=== PATIENT | male | born 1960 | race Caucasian/White ===

== ENCOUNTER 2023-01-06 00:50 | Observation (INO) | payer OTHER, SELFPAY ==
--- NOTE | ~2023-01-06 | XR_ITS ---
EXAMINATION: XR abdomen/kub 1V INDICATION: Left ureteral stone TECHNIQUE: Supine views of the abdomen were obtained on 2 radiographs. COMPARISON: None FINDINGS: There is a 6 mm stone at the expected position of the left ureteropelvic junction. Stones m easuring 12 mm and 11 mm are present in the left kidney lower pole. No definite additional urolithias is is identified. There is mild atelectasis or scarring of the left lung base. The bowel gas pattern is normal. There is mild osteoarthritis of the hips. IMPRESSION: 1. 6 mm stone left ureteropelvic junction. 2. Left nephrolithiasis. Reviewed, dictated and finalized at location B.
--- NOTE | 2023-01-06 22:07 | ADMGEN ---
This patient, Leighton Brown, was admitted to Medical Room 247-. Patient/family oriented to hospital policies and general routines including ID bracelet, bed and alarms, visiting hours, pain management, procedures, bathroom and other care routines, personal items, smoking policy, room service/diet, and visiting hours. Information on how to activate the Rapid Response Team has been discussed. Patient/Family are encouraged to report perceived risks to care and to ask questions if they do not understand what they are told or what they should do.
[2023-01-06 22:50] VITALS: BP 179/87; PULSE 99; RESP 18; TEMP 36.6; O2SAT 98
[2023-01-06 22:51] VITALS: BMI 46.9
[2023-01-06 23:20] VITALS: PULSE 92; RESP 12; O2SAT 97
[2023-01-07] VITALS (10 sets, daily range): BP systolic 139–189; BP diastolic 78–99; PULSE 78–101; RESP 16–23; TEMP 36.4–37.2; O2SAT 93–100
[2023-01-07] MEDS: HYDROmorphone HCL INJ (*CRX) 1 MG/ML SYR IV PUSH ×3 (00:41→09:19)
[2023-01-07] MEDS: DEXTROSE 5%/LACTATED RINGERS 1,000 ML 100 ML IV CONT ×2 (01:10→12:54)
[2023-01-07 01:32] LABS: Basophils Percent Auto 0.3 % (0.2-1.2); Eosinophils Percent Auto 0.3 % (0-4.4); Hematocrit 42.7 % (42.0-52.0); Hemoglobin 14.8 g/dL (14.0-18.0); Immature Granulocyte Absolute 0.04 K/mm3 (0.00-0.031); Immature Granulocyte Percent A 0.3 % (0-0.5); Lymphocytes Absolute Auto 1.58 K/mm3 (0.9-3.2); Lymphocytes Percent Auto 13.3 % (18.3-44.2); Mean Corpuscular HGB Conc 34.7 g/dl (32-36); Mean Corpuscular Hemoglobin 31.4 pg (26-34); Mean Corpuscular Volume 90.5 fl (80-100); Mean Platelet Volume 9.9 fl (7.4-10.4); Monocytes Absolute Auto 1.1 K/mm3 (0.1-0.6); Monocytes Percent Auto 9.2 % (2.6-8.5); Neutrophils Absolute Auto 9.1 K/mm3 (1.3-6.7); Neutrophils Percent Auto 76.6 % (45.5-73.1); Platelet Count Result 219 k/mm3 (150-375); Red Blood Count 4.72 M/mm3 (4.6-6.20); Red Cell Distribution Width 13.4 % (11.5-14.5); White Blood Count 11.9 K/mm3 (4.5-10.0)
[2023-01-07 01:44] LABS: Anion Gap 9 mmol/L (8-16); Blood Urea Nitrogen 25 mg/dL (9-20); Calcium 9.5 mg/dL (8.4-10.2); Carbon Dioxide 23 mmol/L (22-30); Chloride 101 mmol/L (98-107); Estimated CRCL calculation 84 ml/min; Estimated Glomerular Filt Rate > 60; Glucose 134 mg/dL (65-110); Potassium 3.8 mmol/L (3.4-5.0); Sodium 133 mmol/L (137-145)
--- NOTE | 2023-01-07 04:36 | PM.IMHP ---
H&P: HPI History of Present Illness Date/Time: 01/07/23 04:36 Chief Complaint: Left flank pain Narrative: 62-year-old previously unknown to our service who reports having spontaneously passed a small right ureteral stone several months ago. He presented to the emergency department at [facility] with acute left renal colic and CT imaging demonstrates a partially obstructing 8 mm left UPJ calculus. He denies fevers chills gross hematuria. His urinalysis it was clean without evidence of infection. He was transferred here due to lack of urologic care at that facility. After discussion he is agreeable to proceeding with left ESWL. I feel comfortable with that given the fact he takes only a baby aspirin and has clean urine. He is aware the risk including, but not limited to, adverse cardiopulmonary events, need for additional procedures, hematuria and perinephric hematoma. Review of Systems Review of Systems: All systems reviewed & are unremarkable except as noted in HPI and below PMFSH Family History Family History (Updated 01/06/23 @ 22:37 by Kalyani Suarez RN) Mother Epilepsy Father Lung cancer Social History Social History Smoking status: Former smoker Alcohol intake: current Drinks per week: 1 Substance use: never Lack of Transportation: No Lack of Food: Never True Current Housing: I Have Housing Concerned About Future Housing: No Difficulty Paying Gas/Electric Bills: No Difficulty Paying for Meds: No Currently Unemployed: No Education: Associate Degree Difficulty w/ Childcare or Family Care: No Spiritual care concerns: No Meds Home Medications and Allergies Home Medications Medication Instructions Recorded Confirmed Type acetaminophen 325 mg capsule 1,000 mg PO Q6H PRN Pain, Mild 01/06/23 01/06/23 History (Tylenol) allopurinol 300 mg tablet 300 mg PO BID 01/06/23 01/06/23 History atorvastatin 10 mg tablet 10 mg PO DAILY 01/06/23 01/06/23 History carvedilol 12.5 mg tablet 12.5 mg PO BID 01/06/23 01/06/23 History diclofenac sodium 75 mg 75 mg PO BID 01/06/23 01/06/23 History tablet,delayed release insulin glargine 100 unit/mL (3 35 unit subcut HS 01/06/23 01/06/23 History mL) subcutaneous pen (Lantus Solostar U-100 Insulin) lisinopril 10 mg tablet 10 mg PO DAILY 01/06/23 01/06/23 History metformin 500 mg tablet 500 mg PO BID 01/06/23 01/06/23 History semaglutide 2 mg/dose (8 mg/3 mL) 2 mg subcut WEEKLY 01/06/23 01/06/23 History subcutaneous pen injector (Ozempic) tramadol 50 mg tablet 50 mg PO TID PRN Pain, Moderate 01/06/23 01/06/23 History Allergies Allergy/AdvReac Type Severity Reaction Status Date / Time No Known Allergies Allergy Verified 01/06/23 22:10 Vital Signs Vital Signs - 24 hr 01/06/23 22:34 01/06/23 22:50 01/06/23 23:20 Temperature 98 F Pulse Rate 99 92 Respiratory Rate 18 12 Blood Pressure 179/87 H Pulse Oximetry 98 97 Oxygen Delivery Room Air Room Air 01/07/23 02:30 Temperature Pulse Rate 85 Respiratory Rate Blood Pressure Pulse Oximetry 96 Oxygen Delivery Autopap H&P: Results Labs Labs: Short CBC 01/07/23 Range/Units 01:24 WBC 11.9 H (4.5-10.0) K/mm3 Hgb 14.8 (14.0-18.0) g/dL Hct 42.7 (42.0-52.0) % Plt Count 219 (150-375) k/mm3 [facility] 01/07/23 01:24 Sodium 133 L Potassium 3.8 Chloride 101 Carbon Dioxide 23 BUN 25 H Creatinine 1.10 Glucose 134 H Calcium 9.5 Assessment and Plan Assessment and plan (1) Obstruction of left ureteropelvic junction (UPJ) due to stone: Code(s): N20.1 - Calculus of ureter Status: Acute (2) Type II diabetes mellitus: Code(s): E11.9 - Type 2 diabetes mellitus without complications Status: Acute (3) Hyperchloremia: Code(s): E87.8 - Other disorders of electrolyte and fluid balance, not elsewhere classified Status: Acute Assessment and Plan: Left ESWL
--- NOTE | 2023-01-07 04:39 | WPDHPUPDATE1 ---
History and Physical Update Update Date/Time: 01/07/23 04:39 History and Physical has been reviewed, including an updated exam of the patient. There are NO changes in the patient's condition. Risks, benefits, and alternatives have been discussed and questions answered. Patient agrees to proceed with procedure.
[2023-01-07 04:51] LABS: Appearance Urine Clear (Clear); Bacteria Urine None Seen /hpf; Bilirubin Urine Negative (Negative); Blood Urine Negative (Negative); Color Urine Yellow (Yellow); Glucose Urine UA Negative (Negative); Ketones Urine Trace mg/dL (Negative); Leukocyte Esterase Ur Negative LEU/UL (NEGATIVE); Nitrate Urine Negative (Negative); Non Pathogenic Casts 0-2; Protein Urine 1+ mg/dL (Negative); RBC Urine 0-2 /hpf (0-2); Specific Grav Ur 1.014 (1.001-1.035); Squamous Epithelial Cell Urine None seen /hpf (Few); Urobilinogen Urine 0.2 mg/dL (<2.0); WBC Urine 0-5 /hpf (0-3); pH Urine 6.5 (5.0-9.0)
[2023-01-07 05:23] LABS: Add Urine Microscopic? YES
[2023-01-07 05:36] LABS: INR 1.1; Partial Thromboplastin Time 26.7 SECONDS (22.3-36.8); Prothrombin Time 14.6 Seconds (11.1-14.7)
[2023-01-07] MEDS: ONDANSETRON INJ 4 MG/2 ML VIAL IV PUSH ×2 (05:42→13:17)
[2023-01-07 08:24] LABS: Glucose Point of Care 141 mg/dl (65-105)
[2023-01-07] MEDS: carvediloL 12.5 MG TABLET PO (09:19)
[2023-01-07 11:50] LABS: Glucose Point of Care 141 mg/dl (65-105)
--- NOTE | 2023-01-07 13:09 | PM.IMPN ---
Progress Note: A&P Assessment and Plan (1) Obstruction of left ureteropelvic junction (UPJ) due to stone: Code(s): N20.1 - Calculus of ureter Status: Acute Assessment and Plan: 6 mm left ureteropelvic junction stone. Patient recently had kidney stone couple months ago that passed on its own. urology consulted. Stent placement with lithotripsy today. Continue IV fluids. (2) Type II diabetes mellitus: Code(s): E11.9 - Type 2 diabetes mellitus without complications Status: Acute Assessment and Plan: Insulin Lispro sliding scale, Accu-checks qAc and HS and Hold oral hypoglycemics Initiate hypoglycemic precautions (3) Hypertension: Code(s): I10 - Essential (primary) hypertension Status: Acute Assessment and Plan: Continue home blood pressure medication. Subjective Date/time seen: 01/07/23 13:09 Interval history: Patient being seen by Urology for left-sided ureteral stone. Patient getting lithotripsy and stent placement today. Patient having left-sided abdominal pain and flank pain. He denies any dysuria, nausea vomiting. Exam Narrative: GENERAL: Comfortable, no acute distress HENMT: moist mucous membranes EYES: EOM intact b/l NECK: no lymphadenopathy RESPIRATORY: clear to auscultation CARDIO: RRR GI: soft, Right-sided abdominal tenderness, bowel sounds present, right-sided CVA tenderness SKIN: no rashes EXTREMITIES: no edema, redness or tenderness Objective Data Vital Signs Vital Signs: Vital Signs - 24 hr 01/06/23 22:34 01/06/23 22:50 01/06/23 23:20 Temperature 98 F Pulse Rate 99 92 Respiratory Rate 18 12 Blood Pressure 179/87 H Pulse Oximetry 98 97 Oxygen Delivery Room Air Room Air 01/07/23 02:30 01/07/23 06:52 01/07/23 09:18 Temperature 97.7 F Pulse Rate 85 96 78 Respiratory Rate 18 Blood Pressure 170/85 H 185/80 H Pulse Oximetry 96 99 Oxygen Delivery Autopap 01/07/23 09:19 01/07/23 09:20 Temperature Pulse Rate 78 Respiratory Rate Blood Pressure Pulse Oximetry Oxygen Delivery Room Air Intake/Output Intake/Output: Intake & Output 01/04/23 01/05/23 01/06/23 01/07/23 23:59 23:59 23:59 23:59 Intake Total 1000 Output Total 300 Balance 700 Meds/Results Medications: Active Medications Generic Name Dose Route Start Last Admin Trade Name Freq PRN Reason Stop Dose Admin Acetaminophen 1,000 mg 01/07/23 00:31 Acetaminophen 500 Mg Tablet PO Q6H PRN Pain, Mild 1-3 Allopurinol 300 mg 01/07/23 09:00 01/07/23 09:02 Allopurinol 300 Mg Tablet PO Not Given Q12HR STEVIE Atorvastatin Calcium 10 mg 01/07/23 09:00 01/07/23 09:02 Atorvastatin 10 Mg Tablet PO Not Given DAILY STEVIE Carvedilol 12.5 mg 01/07/23 09:00 01/07/23 09:19 Carvedilol 12.5 Mg Tablet PO 12.5 mg Q12HR STEVIE Administration Dextrose 12.5 gm 01/07/23 07:33 Dextrose 50% 25 Gm/50 Ml Syringe IV PUSH PRN PRN Hypoglycemia Protocol Glucagon 1 mg 01/07/23 07:33 Glucagon For Inj 1 Mg Vial IM PRN PRN Hypoglycemia Protocol Glucose 15 gm 01/07/23 07:33 Glucose Oral Gel 15 Gm Of Glucse In 37.5 Gm Tube PO PRN PRN Hypoglycemia Protocol Hydromorphone HCl 1 mg 01/07/23 00:32 01/07/23 09:19 Hydromorphone Hcl Inj (*Crx) 1 Mg/Ml Syr IV PUSH 1 mg Q3H PRN Administration Pain Rated 7-10 Dextrose/Lactated Ringer's 1,000 mls @ 100 mls/hr 01/07/23 00:50 01/07/23 12:54 Dextrose 5%/Lactated Ringers IV CONT 100 mls/hr .Q10H STEVIE Administration Dextrose 1,000 mls @ 100 mls/hr 01/07/23 07:33 Dextrose 5% 1,000 Ml IVPB PRN PRN Hypoglycemia Protocol Insulin Aspart 2 - 5 units 01/07/23 08:00 01/07/23 12:54 Insulin Aspart (*Bkc) 100 Units/Ml SUB-Q Not Given TIDWM STEVIE Protocol Insulin Aspart 1 - 2 units 01/07/23 21:00 Insulin Aspart (*Bkc) 100 Units/Ml SUB-
[2023-01-07] MEDS: LACTATED RINGERS 1,000 ML 30 ML IV CONT (14:30)
--- NOTE | 2023-01-07 14:33 | WPDANESEPPF ---
Anes - Initial Pre Proc Eval Procedure: Operation Date: 01/07/23 16:00 Proposed Procedures p Left Extracorporeal Shock Wave Lithotripsy - Ethan Vance MD Date/Time: 01/07/23 14:33 Surgeon: Ethan Vance MD Pre Op Diagnosis: Kidney stone Patient Data Age: 62 Gender: M Height: 1.7 m Weight: 136 kg Last Vital Signs Temp 36.5 C 01/07/23 06:52 Pulse 78 01/07/23 09:19 Resp 18 01/07/23 06:52 BP 185/80 H 01/07/23 09:18 Pulse Ox 99 01/07/23 06:52 O2 Del Method Room Air 01/07/23 09:20 Allergies Allergy/AdvReac Type Severity Reaction Status Date / Time No Known Allergies Allergy Verified 01/06/23 22:10 Home Medications Medication Instructions Recorded Confirmed Type acetaminophen 325 mg capsule 1,000 mg PO Q6H PRN Pain, Mild 01/06/23 01/06/23 History (Tylenol) allopurinol 300 mg tablet 300 mg PO BID 01/06/23 01/06/23 History atorvastatin 10 mg tablet 10 mg PO DAILY 01/06/23 01/06/23 History carvedilol 12.5 mg tablet 12.5 mg PO BID 01/06/23 01/06/23 History diclofenac sodium 75 mg 75 mg PO BID 01/06/23 01/06/23 History tablet,delayed release insulin glargine 100 unit/mL (3 35 unit subcut HS 01/06/23 01/06/23 History mL) subcutaneous pen (Lantus Solostar U-100 Insulin) lisinopril 10 mg tablet 10 mg PO DAILY 01/06/23 01/06/23 History metformin 500 mg tablet 500 mg PO BID 01/06/23 01/06/23 History semaglutide 2 mg/dose (8 mg/3 mL) 2 mg subcut WEEKLY 01/06/23 01/06/23 History subcutaneous pen injector (Ozempic) tramadol 50 mg tablet 50 mg PO TID PRN Pain, Moderate 01/06/23 01/06/23 History Laboratory Tests 01/07/23 01/07/23 01/07/23 01:24 04:33 05:02 WBC 11.9 H K/mm3 (4.5-10.0) RBC 4.72 M/mm3 (4.6-6.20) Hgb 14.8 g/dL (14.0-18.0) Hct 42.7 % (42.0-52.0) MCV 90.5 fl (80-100) MCH 31.4 pg (26-34) MCHC 34.7 g/dl (32-36) RDW 13.4 % (11.5-14.5) Plt Count 219 k/mm3 (150-375) MPV 9.9 fl (7.4-10.4) Immature Gran % (Auto) 0.3 % (0-0.5) Neut % (Auto) 76.6 H % (45.5-73.1) Lymph % (Auto) 13.3 L % (18.3-44.2) Miller % (Auto) 9.2 H % (2.6-8.5) Eos % (Auto) 0.3 % (0-4.4) Baso % (Auto) 0.3 % (0.2-1.2) Lymph # (Auto) 1.58 K/mm3 (0.9-3.2) Miller # (Auto) 1.1 H K/mm3 (0.1-0.6) Eos # (Auto) 0.0 K/mm3 (0-0.3) Baso # (Auto) 0.0 K/mm3 (0.0-0.1) Abs Immat Gran (auto) 0.04 H K/mm3 (0.00-0.031) Absolute Neuts (auto) 9.1 H K/mm3 (1.3-6.7) Absolute Nucleated RBC 0.0 K/mm3 (0.0-0.012) Nucleated RBC % 0.0 % (0.0-0.2) PT 14.6 Seconds (11.1-14.7) INR 1.1 APTT 26.7 SECONDS (22.3-36.8) Sodium 133 L mmol/L (137-145) Potassium 3.8 mmol/L (3.4-5.0) Chloride 101 mmol/L (98-107) Carbon Dioxide 23 mmol/L (22-30) Anion Gap 9 mmol/L (8-16) BUN 25 H mg/dL (9-20) Creatinine 1.10 mg/dL (0.7-1.3) Estim Creat Clear Calc 84 ml/min Estimated GFR > 60 (59 - ) Glucose 134 H mg/dL (65-110) POC Capillary Glucose Calcium 9.5 mg/dL (8.4-10.2) Urine Color Yellow (Yellow) Urine Appearance Clear (Clear) Urine pH 6.5 (5.0-9.0) Ur Specific [place] 1.014 (1.001-1.035) Urine Protein 1+ H mg/dL (Negative) Urine Glucose (UA) Negative mg/dL (Negative) Urine Ketones Trace H mg/dL (Negative) Ur Blood (Man) Negative (Negative) Urine Nitrate Negative (Negative) Urine Bilirubin Negative (Negative) Urine Urobilinogen 0.2 mg/dL (<2.0) Ur Leukocyte Esterase Negative NIKIA/UL (NEGATIVE) Urine RBC 0-2 /hpf (0-2) Urin
[2023-01-07 14:43] LABS: Glucose Point of Care 146 mg/dl (65-105)
[2023-01-07] MEDS: ceFAZolin 3 GM/D5W 100 ML 100 ML IVPB (15:27)
--- NOTE | 2023-01-07 15:37 | W.PM.PROC2 ---
Procedure Note - Detailed Date of Procedure 01/07/23 Pre-op Diagnosis Left kidney stone Post-op Diagnosis Same Procedure Performed Left ESLW Surgeon Ethan Vance MD Anesthesia General Description of Procedure The patient was brought to the operative suite where he was placed in the supine position on the Dornier lithotripsy table. The focal point of the lithotripter was placed at a 6mm left renal calculus. A total of 2500 shocks were delivered at a power setting of 4. There appeared to be good fragmentation of the stone. The patient tolerated the procedure well and was taken to the recovery room in good condition. Urine Output 300 Drains No Packing No Pathology None sent Complications No immediate complications Condition Stable Disposition PACU
[2023-01-07 16:45] LABS: Glucose Point of Care 135 mg/dl (65-105)
--- NOTE | 2023-01-07 16:45 | SUR.PHASEI ---
Notified Dr. Felton regarding patient's SBP 190-200's. Did not want to give medications in PACU at this time. Stated patient should take his PO dose of coreg this evening.
[2023-01-07] MEDS: fentaNYL CITRATE INJ (*CRX) 100 MCG/2 ML VIAL 25 MCG IV PUSH ×4 (16:50→17:18)
[2023-01-07] MEDS: KETOROLAC 30 MG/ML VIAL (*BKC) IV PUSH (16:58)
--- NOTE | 2023-01-10 12:34 | PM.DS ---
DS: Admitting Diagnosis Discharge Date 01/07/23 Admitting Diagnosis Urethral stones DS: Discharge Diagnosis Discharge Diagnosis (1) Obstruction of left ureteropelvic junction (UPJ) due to stone: Code(s): N20.1 - Calculus of ureter Status: Acute (2) Type II diabetes mellitus: Code(s): E11.9 - Type 2 diabetes mellitus without complications Status: Acute (3) Hypertension: Code(s): I10 - Essential (primary) hypertension Status: Acute DS: Summary Hospital Course Hospital Course: 62-year-old male with past medical history of hypertension, diabetes and hyperlipidemia that presented to the ED on 01/07/2023 due to acute left flank pain. CT abdomen pelvis revealing obstructing 8 mm left UPJ stone urinalysis did not show any signs of infection. He was seen at [facility] was transferred to [place] due to lack of urologic care at that facility. Urology was consulted and patient underwent a left ESWL on 01/07/2023. Patient tolerated the procedure well and was discharged home following the procedure. Time Spent with Patient Time attestation: Total time spent providing and/or coordinating discharge services: Exam Narrative: GENERAL: Comfortable, no acute distress HENMT: moist mucous membranes EYES: EOM intact b/l NECK: no lymphadenopathy RESPIRATORY: clear to auscultation CARDIO: RRR GI: soft, Right-sided abdominal tenderness, bowel sounds present, right-sided CVA tenderness SKIN: no rashes EXTREMITIES: no edema, redness or tenderness Discharge Plan Discharge Attending physician on discharge: Loyd Lombardi V. Consulting providers: Ethan Vance; Savita Mcallister; Juanjo Felton; Thomas Epstein Discharging Clinician: Ethan Vance Patient Disposition: Home, Self-Care Activity: other - see discharge instructions Diet: other - see discharge instructions Discharge Instructions: 1) Activity: No driving or important decisions [id number]. No lifting/straining >15lbs. [id number]. 2) Strain urine until one stone fragment retrieved. Bring that fragment to your follow-up visit. 3) Diet: resume normal pre-admission diet. 4) Follow-up: 2-3 weeks with [facility] / call for appointment ([phone]) 5) Notifbetty Gan if unable to discharge pt. Patient Instructions: Antibiotic Form Stand Alone Forms: General Discharge Information Follow-up/Referrals: Ethan Vance MD [Physician] - (2-weeks with [facility]) Discharge Medications: New ciprofloxacin HCl 500 mg tablet 500 mg PO Q12H Qty: 10 0RF hydrocodone-acetaminophen 5-325 mg tablet 1 - 2 tablet PO Q6H PRN (Reason: pain) Qty: 24 0RF Continued metformin 500 mg tablet 500 mg PO BID carvedilol 12.5 mg tablet 12.5 mg PO BID atorvastatin 10 mg tablet 10 mg PO DAILY tramadol 50 mg tablet 50 mg PO TID PRN (Reason: Pain, Moderate) lisinopril 10 mg tablet 10 mg PO DAILY diclofenac sodium 75 mg tablet,delayed release (DR/EC) 75 mg PO BID allopurinol 300 mg tablet 300 mg PO BID acetaminophen [Tylenol] 325 mg Capsule 1,000 mg PO Q6H PRN (Reason: Pain, Mild) insulin glargine [Lantus Solostar U-100 Insulin] 100 unit/mL (3 mL) insulin pen 35 unit SUBCUT HS Ozempic 2 mg/dose (8 mg/3 mL) pen injector 2 mg SUBCUT WEEKLY Rx Instructions: TAKES ON TUE Other Ambulatory Orders: XR abdomen/kub 1V (Routine) Timeframe: 2 Weeks Location: Determined by Patient Ordered By: Ethan Vance Date of admission: 01/06/23 00:50 Primary Care Provider: MalaikaEdy Admitting Provider: Loyd Lombardi V. Attending physician on admission: Loyd Lombardi V. Condition: Stable
== END 2023-01-07 19:15 | disposition home or self-care (01) ==
PROVIDERS: Urology; Admitting Provider Internal Medicine; PCP Internal Medicine; Visit Provider Internal Medicine
PROC: (CPT 50590; principal; 2023-01-07 16:00)
DX: N20.0 Calculus of kidney (principal); F10.90 Alcohol use, unspecified, uncomplicated; E11.9 Type 2 diabetes mellitus without complications; I10 Essential (primary) hypertension; E78.5 Hyperlipidemia, unspecified; E87.8 Other disorders of electrolyte and fluid balance, not elsewhere classified; Z87.891 Personal history of nicotine dependence; Z79.1 Long term (current) use of non-steroidal anti-inflammatories (NSAID); Z79.4 Long term (current) use of insulin; Z79.84 Long term (current) use of oral hypoglycemic drugs; Z79.85 Long-term (current) use of injectable non-insulin antidiabetic drugs; Z79.891 Long term (current) use of opiate analgesic
CPT/HCPCS: 50590; 36415; 74018; 80048; 81001; 82948; 85025; 85610; 85730; 96361; 96374; A9270; G0378; G0379; J0330; J0690; J1100; J1170; J1200; J1885; J2405; J2704; J3010; J7120; J7121

== ENCOUNTER → 2023-04-26 08:37 | Outpatient (CLI) | payer OTHER, SELFPAY ==
--- NOTE | ~2023-04-26 | XR_ITS ---
Supine and upright views of the abdomen Clinical history: Renal stone COMPARISON: 01/07/2023 Findings: Bowel gas pattern is nonspecific. No evidence for obstruction or free air. Suspected small bilateral renal stones present, decreased in size from prior exam. Osseous structures are intact. Impression: Suspected small bilateral renal stones present, decreased in size on the left since prior exam. Reviewed, dictated and finalized at location M. [employer] Impression: Suspected small bilateral renal stones present, decreased in size on the left s george prior exam.
== END ==
PROVIDERS: PCP Urology; Visit Provider Urology
DX: Z87.442 Personal history of urinary calculi (principal)
CPT/HCPCS: 74018

== ENCOUNTER 2024-01-09 00:19 | Day surgery (SDC) | payer OTHER, SELFPAY ==
[2023-12-28 15:30] VITALS: BMI 47.9
[2024-01-09 11:20] VITALS: BP 131/79; PULSE 70; RESP 20; TEMP 36.2; O2SAT 97
[2024-01-09] MEDS: LACTATED RINGERS 1,000 ML 150 ML IV CONT (11:42)
--- NOTE | 2024-01-09 11:43 | SUR.PREOP ---
BG is 109 in pre-op per Dexcom reading.
--- NOTE | 2024-01-09 12:01 | P.PNAN_ITS ---
Anes - Initial Pre Proc Eval Procedure: Operation Date: 01/09/24 11:30 Proposed Procedures p Screening Colonoscopy - Elder Quezada MD Date/Time: 01/09/24 12:01 Surgeon: Elder Quezada MD Pre Op Diagnosis: neoplasm screening Patient Data Age: 63 Gender: M Height: 1.73 m Weight: 140.7 kg Last Vital Signs Temp 36.2 C L 01/09/24 11:20 Pulse 70 01/09/24 11:20 Resp 20 01/09/24 11:20 BP 131/79 01/09/24 11:20 Pulse Ox 97 01/09/24 11:20 O2 Del Method Room Air 01/09/24 11:20 Allergies Allergy/AdvReac Type Severity Reaction Status Date / Time No Known Allergies Allergy Verified 01/09/24 11:26 Home Medications Medication Instructions Recorded Confirmed Type acetaminophen 325 mg capsule 1,000 mg PO Q6H PRN Pain, Mild 01/06/23 01/09/24 History (Tylenol) allopurinol 300 mg tablet 300 mg PO BID 01/06/23 01/09/24 History atorvastatin 10 mg tablet 10 mg PO DAILY 01/06/23 01/09/24 History carvedilol 12.5 mg tablet 12.5 mg PO BID 01/06/23 01/09/24 History insulin glargine 100 unit/mL (3 35 unit subcut HS 01/06/23 01/09/24 History mL) subcutaneous pen (Lantus Solostar U-100 Insulin) lisinopril 10 mg tablet 10 mg PO DAILY 01/06/23 01/09/24 History metformin 500 mg tablet 500 mg PO BID 01/06/23 01/09/24 History semaglutide 2 mg/dose (8 mg/3 mL) 2 mg subcut WEEKLY 01/06/23 01/09/24 History subcutaneous pen injector (Ozempic) tramadol 50 mg tablet 50 mg PO TID PRN Pain, Moderate 01/06/23 01/09/24 History celecoxib 200 mg capsule 200 mg PO BID 12/28/23 01/09/24 History Patient hx anesthesia problems: none Family hx anesthesia problems: none Results Review: All pre-operative results and documents have been reviewed as part of the pre- operative evaluation. [facility] Past Medical History Medical History (Updated 01/09/24 @ 12:02 by Juanjo Felton MD) Hypertension Morbid obesity MINGO (obstructive sleep apnea) Type II diabetes mellitus Surgical History Surgical History History of foot surgery Family History Family History Mother Epilepsy Father Lung cancer Social History Social History Smoking packs per day: 2 Smoking cigarettes per day: 40.0 Smoking status: Former smoker Tobacco type: cigarettes Alcohol intake: current Drinks per week: 2 Substance use: never Lack of Transportation: No Lack of Food: Never True Current Housing: I Have Housing Concerned About Future Housing: No Difficulty Paying Gas/Electric Bills: No Difficulty Paying for Meds: No Currently Unemployed: No Education: Associate Degree Difficulty w/ Childcare or Family Care: No Living arrangements: with family Spiritual care concerns: No Anes - Eval Final PreProcedure Day of Procedure 01/09/24 12:01 Patient weight: morbidly obese Heart: regular rate and rhythm Lungs: clear to auscultation Airway: Mallampati scale class II Neurological: alert and oriented Last oral intake: >/= 8 hours ASA classification: III Emergent: no Anesthetic plan: proceed Anesthesia type and monitoring: general GIVS and standard monitoring Results Review: All pre-operative results and documents have been reviewed as part of the pre- operative evaluation. Informed Consent: The patient's anesthetic plan and its attendant risks and benefits were discuss ed with the patient/family/POA. Questions were solicited and answers provided to the satisfaction of the patient/family/POA.
--- NOTE | 2024-01-09 12:31 | PM.IMHP ---
H&P: HPI History of Present Illness Date/Time: 01/09/24 12:31 Chief Complaint: Screening colonoscopy Narrative: this is the 1st patient's screening colonoscopy. Review of Systems Review of Systems: All systems reviewed & are unremarkable except as noted in HPI and below PMFSH Past Medical History Medical History (Updated 01/09/24 @ 12:32 by Elder Quezada MD) Hypertension Morbid obesity MINGO (obstructive sleep apnea) Type II diabetes mellitus Surgical History Surgical History History of foot surgery Family History Family History Mother Epilepsy Father Lung cancer Social History Social History Smoking packs per day: 2 Smoking cigarettes per day: 40.0 Smoking status: Former smoker Tobacco type: cigarettes Alcohol intake: current Drinks per week: 2 Substance use: never Lack of Transportation: No Lack of Food: Never True Current Housing: I Have Housing Concerned About Future Housing: No Difficulty Paying Gas/Electric Bills: No Difficulty Paying for Meds: No Currently Unemployed: No Education: Associate Degree Difficulty w/ Childcare or Family Care: No Living arrangements: with family Spiritual care concerns: No Meds Home Medications and Allergies Home Medications Medication Instructions Recorded Confirmed Type acetaminophen 325 mg capsule 1,000 mg PO Q6H PRN Pain, Mild 01/06/23 01/09/24 History (Tylenol) allopurinol 300 mg tablet 300 mg PO BID 01/06/23 01/09/24 History atorvastatin 10 mg tablet 10 mg PO DAILY 01/06/23 01/09/24 History carvedilol 12.5 mg tablet 12.5 mg PO BID 01/06/23 01/09/24 History insulin glargine 100 unit/mL (3 35 unit subcut HS 01/06/23 01/09/24 History mL) subcutaneous pen (Lantus Solostar U-100 Insulin) lisinopril 10 mg tablet 10 mg PO DAILY 01/06/23 01/09/24 History metformin 500 mg tablet 500 mg PO BID 01/06/23 01/09/24 History semaglutide 2 mg/dose (8 mg/3 mL) 2 mg subcut WEEKLY 01/06/23 01/09/24 History subcutaneous pen injector (Ozempic) tramadol 50 mg tablet 50 mg PO TID PRN Pain, Moderate 01/06/23 01/09/24 History celecoxib 200 mg capsule 200 mg PO BID 12/28/23 01/09/24 History Allergies Allergy/AdvReac Type Severity Reaction Status Date / Time No Known Allergies Allergy Verified 01/09/24 11:26 Vital Signs Vital Signs - 24 hr 01/09/24 11:20 Temperature 97.2 F L Pulse Rate 70 Respiratory Rate 20 Blood Pressure 131/79 Pulse Oximetry 97 Oxygen Delivery Room Air Assessment and Plan Assessment and plan (1) Screening for malignant neoplasm of colon: Code(s): Z12.11 - Encounter for screening for malignant neoplasm of colon Status: Acute Plan Patient deemed a good candidate for colonoscopy, will proceed.
[2024-01-09 12:54] VITALS: BP 115/66; PULSE 90; RESP 21; O2SAT 97
[2024-01-09 13:04] VITALS: BP 109/72; PULSE 84; RESP 23; O2SAT 97
[2024-01-09 13:14] VITALS: BP 149/88; PULSE 83; RESP 30; O2SAT 100
[2024-01-09 13:22] LABS: Glucose Point of Care 104 mg/dl (65-105)
== END 2024-01-09 13:30 | disposition home or self-care (01) ==
PROVIDERS: PCP Internal Medicine; Referring Provider Internal Medicine; Visit Provider Internal Medicine Gastroenterology
PROC: 0DJD8ZZ Inspection of Lower Intestinal Tract, Via Natural or Artificial Opening Endoscopic (ICD-10-PCS; CPT 45378; principal; 2024-01-09 11:30)
DX: Z12.11 Encounter for screening for malignant neoplasm of colon (principal); K64.8 Other hemorrhoids; I10 Essential (primary) hypertension; E11.9 Type 2 diabetes mellitus without complications; G47.33 Obstructive sleep apnea (adult) (pediatric); E66.01 Morbid (severe) obesity due to excess calories; Z68.42 Body mass index [BMI] 45.0-49.9, adult; Z79.4 Long term (current) use of insulin; Z79.85 Long-term (current) use of injectable non-insulin antidiabetic drugs; Z79.891 Long term (current) use of opiate analgesic; Z98.890 Other specified postprocedural states; Z87.891 Personal history of nicotine dependence; Z80.1 Family history of malignant neoplasm of trachea, bronchus and lung
CPT/HCPCS: 45378; 82948; J2003; J2704; J7120